=== PATIENT | male | born 1995 | race Caucasian/White ===

== ENCOUNTER → 2019-11-26 | Outpatient (CLI) | payer SELFPAY ==
--- NOTE | 2019-11-26 13:18 | Diagnostic Imaging Report ---
PROCEDURE: US Scrotum. TECHNIQUE: Multiple real-time grayscale images were obtained over the scrotum in various projections bilaterally. INDICATION: Testicular pain and hematuria. FINDINGS: The right testicle measures 4.6 x 2.2 x 3.2 cm and the left testicle measures 4.1 x 2.2 x 3.1 cm. Both testicles demonstrate homogeneous echogenicity and blood flow. Both epididymides are normal. There are small bilateral hydroceles. There are small bilateral varicoceles. There are no discrete testicular masses. IMPRESSION: Bilateral varicoceles and small bilateral hydroceles, otherwise unremarkable scrotal ultrasound. Specifically, there is no evidence of torsion or orchitis. Dictated by: Dictated on workstation # [id number]
== END ==
LOC: RAD 11:29
PROVIDERS: ATTEND Nurse Practitioner Family
DX: N30.01 Acute cystitis with hematuria (principal); I86.1 Scrotal varices; N43.3 Hydrocele, unspecified
CPT/HCPCS: 76870